=== PATIENT | male | born 1970 | race Caucasian/White ===

== ENCOUNTER 2018-12-14 13:59 | Emergency (ER) | payer OTHER ==
[~2018-12-14] VITALS: Ht 162.6 cm; Wt 82.6 kg
[2018-12-14 14:04] VITALS: BP_SYST 135
[2018-12-14] MEDS ORDERED: KETOROLAC TROMETHAMINE 60 MG/2 ML VIAL IM ONE (14:45)
[2018-12-14 14:54] LABS: BASOPHILS # (AUTO) 0.1 K/uL (0.0-0.2); BASOPHILS % (AUTO) 0.5 % (0.0-2.0); EOSINOPHILS # (AUTO) 0.1 K/uL (0.0-0.4); EOSINOPHILS % (AUTO) 0.6 % (0.0-4.0); HEMATOCRIT 36.9 % (36-54); HEMOGLOBIN 10.8 g/dL (14.0-18.0); LYMPHOCYTES % (AUTO) 15.4 % (20.5-51.5); MEAN CORPUSCULAR HEMOGLOBIN 21 pg (27-31); MEAN CORPUSCULAR HGB CONC 29 % (32-36); MEAN CORPUSCULAR VOLUME 72 fL (79.0-98.0); MONOCYTES # (AUTO) 1.2 K/uL (0.0-1.0); MONOCYTES % (AUTO) 9.1 % (1.7-9.3); NEUTROPHILS # (AUTO) 9.5 K/uL (1.8-7.7); NEUTROPHILS % (AUTO) 74.4 % (40.0-70.0); PLATELET COUNT (AUTO) 337 K/uL (130-430); RED BLOOD CELL COUNT(AUTO) 5.16 MIL/uL (4.2-6.2); RED CELL DISTRIBUTION WIDTH 17.8 % (9.0-15.0); WHITE BLOOD COUNT (AUTO) 12.7 K/uL (4.8-10.8)
[2018-12-14 15:52] LABS: CREATININE 0.89 mg/dL (0.55-1.30); POTASSIUM 4.1 mmol/L (3.5-5.1)
[2018-12-14 15:56] LABS: ALBUMIN 3.7 g/dL (3.4-4.8); TOTAL BILIRUBIN 0.5 mg/dL (0.0-1.0)
[2018-12-14 16:25] VITALS: BP_SYST 135
== END 2018-12-14 16:25 | disposition home or self-care (01) ==
LOC: SED 13:59
DX: R10.9 Unspecified abdominal pain (principal); R10.30 Lower abdominal pain, unspecified
CPT/HCPCS: 36415; 74176; 80053; 83690; 85025; 96372; 99284; J1885

== ENCOUNTER 2019-01-15 10:26 | Inpatient (IN) | payer MEDICAID ==
[~2019-01-15] VITALS: Ht 162.6 cm; Wt 81.6 kg
[~2019-01-15 10:26] MED LIST: PRO40 PO
[2019-01-15 10:28] VITALS: BP_SYST 131
[2019-01-15] MEDS ORDERED: NACL 0.9% 1,000 ML IV ONE (11:15)
[2019-01-15] MEDS ORDERED: KETOROLAC TROMETHAMINE 30 MG VIAL IM ONE (11:15)
[2019-01-15 11:47] LABS: BASOPHILS % (AUTO) 0.2 % (0.0-2.0); EOSINOPHILS % (AUTO) 0.2 % (0.0-4.0); HEMATOCRIT 37.1 % (36-54); HEMOGLOBIN 11.2 g/dL (14.0-18.0); LYMPHOCYTES # (AUTO) 1.4 K/uL (1.0-5.5); LYMPHOCYTES % (AUTO) 12.8 % (20.5-51.5); MEAN CORPUSCULAR HEMOGLOBIN 21 pg (27-31); MEAN CORPUSCULAR HGB CONC 30 % (32-36); MEAN CORPUSCULAR VOLUME 71 fL (79.0-98.0); MONOCYTES # (AUTO) 0.9 K/uL (0.0-1.0); MONOCYTES % (AUTO) 8.1 % (1.7-9.3); NEUTROPHILS # (AUTO) 8.6 K/uL (1.8-7.7); NEUTROPHILS % (AUTO) 78.7 % (40.0-70.0); PLATELET COUNT (AUTO) 308 K/uL (130-430); RED BLOOD CELL COUNT(AUTO) 5.27 MIL/uL (4.2-6.2); RED CELL DISTRIBUTION WIDTH 17.6 % (9.0-15.0); WHITE BLOOD COUNT (AUTO) 10.9 K/uL (4.8-10.8)
[2019-01-15] MEDS ORDERED: DIATR MEGLU/DIATRIZ SOD 30 ML SOLUTION PO ONE (11:51)
[2019-01-15 11:56] LABS: CALCIUM 9.4 mg/dL (8.4-11.0); CREATININE 0.92 mg/dL (0.55-1.30); PROTHROMBIN TIME 9.8 SECS (9.5-12.5)
[2019-01-15 12:01] LABS: ALBUMIN 3.7 g/dL (3.4-4.8); TOTAL BILIRUBIN 0.5 mg/dL (0.0-1.0)
[2019-01-15] MEDS ORDERED: MORPHINE 4 MG/ML INJ. SYRINGE IVP ONE (14:45)
[2019-01-15 16:29] VITALS: BP_SYST 120
[2019-01-15] MEDS ORDERED: KETOROLAC TROMETHAMINE 30 MG VIAL IVP PRN (17:15)
[2019-01-15] MEDS ORDERED: ACETAMINOPHEN 325 MG TABLET PO PRN (18:15)
[2019-01-15] MEDS: POTASSIUM CHLORIDE 10 MEQ in NACL 0.9% 1,000 ML IV SCH (18:30)
[2019-01-15 20:22] VITALS: BP_SYST 134
[2019-01-15] MEDS ORDERED: ONDANSETRON HCL 4 MG/2 ML VIAL IVP PRN (21:00)
[2019-01-15] MEDS ORDERED: KCL 20 mEq in 100 mL (PREMIX) 100 ML IV ONE (21:08)
[2019-01-15] MEDS: PANTOPRAZOLE SODIUM 40 MG/VIAL (PROTONIX) IVP SCH (21:27)
[2019-01-15] MEDS: MORPHINE 2 MG/ML INJ. SYRINGE IVP PRN (21:29)
[2019-01-15] MEDS ORDERED: PANTOPRAZOLE SODIUM 40 MG/VIAL (PROTONIX) IVP ONE (22:00)
[2019-01-15 23:03] VITALS: BP_SYST 137
[2019-01-16 07:29] LABS: BASOPHILS % (AUTO) 0.3 % (0.0-2.0); EOSINOPHILS # (AUTO) 0.1 K/uL (0.0-0.4); EOSINOPHILS % (AUTO) 0.9 % (0.0-4.0); HEMATOCRIT 34.2 % (36-54); HEMOGLOBIN 10.4 g/dL (14.0-18.0); LYMPHOCYTES # (AUTO) 1.8 K/uL (1.0-5.5); LYMPHOCYTES % (AUTO) 26.6 % (20.5-51.5); MEAN CORPUSCULAR HEMOGLOBIN 21 pg (27-31); MEAN CORPUSCULAR HGB CONC 30 % (32-36); MEAN CORPUSCULAR VOLUME 71 fL (79.0-98.0); MONOCYTES # (AUTO) 0.8 K/uL (0.0-1.0); NEUTROPHILS % (AUTO) 60.2 % (40.0-70.0); PLATELET COUNT (AUTO) 279 K/uL (130-430); RED BLOOD CELL COUNT(AUTO) 4.86 MIL/uL (4.2-6.2); WHITE BLOOD COUNT (AUTO) 6.7 K/uL (4.8-10.8)
[2019-01-16 07:32] LABS: CALCIUM 8.6 mg/dL (8.4-11.0); CREATININE 0.97 mg/dL (0.55-1.30)
[2019-01-16 07:41] LABS: TOTAL BILIRUBIN 0.7 mg/dL (0.0-1.0)
[2019-01-16 07:46] LABS: RED CELL DISTRIBUTION WIDTH 17.2 % (9.0-15.0)
[2019-01-16 08:05] VITALS: BP_SYST 132
[2019-01-16] MEDS: PANTOPRAZOLE SODIUM 40 MG/VIAL (PROTONIX) IVP SCH (08:30)
[2019-01-16] MEDS: POTASSIUM CHLORIDE 10 MEQ in NACL 0.9% 1,000 ML IV SCH ×2 (08:30→22:33)
[2019-01-16 12:55] VITALS: BP_SYST 122
[2019-01-16 16:33] VITALS: BP_SYST 119
[2019-01-16 16:47] LABS: BILIRUBIN,URINE NEGATIVE (NEGATIVE); BLOOD, URINE NEGATIVE (NEGATIVE); CLARITY/URINE CLEAR (CLEAR); COLOR,URINE YELLOW (YELLOW); GLUCOSE,URINE NEGATIVE (NEGATIVE); KETONES,URINE NEGATIVE (NEGATIVE); LEUKOCYTE ESTERASE ,URINE NEGATIVE (NEGATIVE); NITRITE, URINE NEGATIVE (NEGATIVE); PH,URINE 6.5 (5.0-8.0); PROTEIN URINE NEGATIVE (NEGATIVE); UROBILINOGEN,URINE 0.2 (0.2-1.0)
[2019-01-16 20:37] VITALS: BP_SYST 122
[2019-01-17] VITALS (7 sets, daily range): BP systolic 114–145
[2019-01-17] MEDS: PANTOPRAZOLE SODIUM 40 MG/VIAL (PROTONIX) IVP SCH (08:41)
[2019-01-17] MEDS ORDERED: BUPIVACAINE LIPOSOME/PF 266 MG/20 ML VIAL INFIL ONE ×2 (13:14→14:50)
[2019-01-17] MEDS ORDERED: BUPIVACAINE /PF 0.25% 30 ML VIAL INJ ONE (14:50)
[2019-01-17] MEDS ORDERED: WATER FOR IRRIGATION,STERILE 1,000 ML IRRIG.SOLN IR ONE (14:50)
[2019-01-17] MEDS ORDERED: ROCURONIUM BROMIDE 10 MG/ML (ZEMURON) ONE (14:50)
[2019-01-17] MEDS ORDERED: fentaNYL CITRATE 250 MCG/5 ML AMP ONE (14:50)
[2019-01-17] MEDS ORDERED: SEVOFLURANE 15 MIN GAS INH ONE (14:50)
[2019-01-17] MEDS ORDERED: MIDAZOLAM HCL 5 MG/ML VIAL (VERSED) IV ONE (14:50)
[2019-01-17] MEDS ORDERED: PROPOFOL 200MG/ 20ML VIAL (DIPRIVAN) IV ONE (14:50)
[2019-01-17] MEDS ORDERED: NS IRRIG SOLN 1000 ML IR ONE (14:50)
[2019-01-17] MEDS ORDERED: LR 1,000 ML IV.SOLN IV ONE (14:50)
[2019-01-17] MEDS ORDERED: ONDANSETRON HCL 4 MG/2 ML VIAL ONE (14:50)
[2019-01-17] MEDS ORDERED: LR 1,000 ML IV SCH (14:58)
[2019-01-17] MEDS ORDERED: HYDROcodone/ACETAMIN 5-325 MG TAB (NORCO/ VICODIN) PO PRN (15:00)
[2019-01-17] MEDS ORDERED: METOCLOPRAMIDE HCL 10 MG/2 ML VIAL IVP PRN (15:00)
[2019-01-17] MEDS ORDERED: MORPHINE 4 MG/ML INJ. SYRINGE IVP PRN ×3 (15:00)
[2019-01-17] MEDS: MORPHINE 2 MG/ML INJ. SYRINGE IVP PRN ×2 (17:59→22:36)
[2019-01-17] MEDS: POTASSIUM CHLORIDE 10 MEQ in NACL 0.9% 1,000 ML IV SCH (18:01)
[2019-01-17] MEDS: ceFAZolin SODIUM 2 GM in D5W 100 ML IV SCH (22:41)
[2019-01-18 00:26] VITALS: BP_SYST 122
[2019-01-18] MEDS: POTASSIUM CHLORIDE 10 MEQ in NACL 0.9% 1,000 ML IV SCH ×2 (05:15→18:51)
[2019-01-18] MEDS: ceFAZolin SODIUM 2 GM in D5W 100 ML IV SCH ×2 (05:16→13:30)
[2019-01-18 08:00] VITALS: BP_SYST 123
[2019-01-18] MEDS: PANTOPRAZOLE SODIUM 40 MG/VIAL (PROTONIX) IVP SCH (09:35)
[2019-01-18 12:51] VITALS: BP_SYST 118
[2019-01-18 16:49] VITALS: BP_SYST 145
[2019-01-18 20:20] VITALS: BP_SYST 135
[2019-01-19 00:42] VITALS: BP_SYST 119
[2019-01-19 07:30] VITALS: BP_SYST 130
[2019-01-19] MEDS: POTASSIUM CHLORIDE 10 MEQ in NACL 0.9% 1,000 ML IV SCH (08:35)
[2019-01-19] MEDS: PANTOPRAZOLE SODIUM 40 MG/VIAL (PROTONIX) IVP SCH (08:35)
[2019-01-19 12:33] VITALS: BP_SYST 120
[2019-01-19 16:50] VITALS: BP_SYST 126
[2019-01-19 18:54] VITALS: BP_SYST 126
== END 2019-01-19 19:55 | disposition home or self-care (01) | DRG 230 ==
LOC: SED 10:26 → SMU 15:21
PROVIDERS: ADMIT Internal Medicine; ATTEND Internal Medicine
PROC: 0WQF4ZZ Repair Abdominal Wall, Percutaneous Endoscopic Approach (ICD-10-PCS; 2019-01-17)
PROC: 0DB84ZZ Excision of Small Intestine, Percutaneous Endoscopic Approach (ICD-10-PCS; principal; 2019-01-17 09:00)
DX: K56.690 Other partial intestinal obstruction (principal); T18.3XXA Foreign body in small intestine, initial encounter; K42.9 Umbilical hernia without obstruction or gangrene; X58.XXXA Exposure to other specified factors, initial encounter; Y93.89 Activity, other specified; Y92.89 Other specified places as the place of occurrence of the external cause; Y99.8 Other external cause status
CPT/HCPCS: 36415; 71046-TC; 80053; 81003; 82150-TC; 83690-TC; 85025; 85610-TC; 85730-TC; 86886; 86900; 86901; 87081; 87230-TC; 88302; 88307; 93005; 96372; 96374; 99285; C1727; C9113; C9290; J0690; J1885; J2250; J2270; J2405; J2704; J3010; J3480; J3490; J7030; J7060; J7120; Q9964

== ENCOUNTER 2020-06-26 12:50 | Emergency (ER) | payer MEDICAID, OTHER ==
[~2020-06-26] VITALS: Ht 165.1 cm; Wt 79.4 kg
[2020-06-26 12:59] VITALS: BP_SYST 142
--- NOTE | 2020-06-26 13:25 | NUR ---
Patient to ER bed 01 to gown for evaluation. Side rails up.
--- NOTE | 2020-06-26 13:27 | NUR ---
Patient arrived in the ED c/o redness and swelling on the left eyelid. Denied any chest pain or shortness of breath. Denied any fevers, chills, nausea or vomiting. Patient is alert and oriented x4, respirations even and unlabored, speaking in full sentences, and ambulating with a steady gait. VSS, pain level 0/10. Informed of the approximate wait time. Instructed to notify ED staff for any changes in condition or worsening of symptoms while waiting to be seen by an ED provider. Patient verbalized understanding.
--- NOTE | 2020-06-26 13:28 | NUR ---
ER Dr. Calin Ldad at bedside examining patient.
--- NOTE | 2020-06-26 13:35 | NUR ---
Patient given written and verbal discharge instructions and verbalizes understanding. ER MD discussed with patient the results and treatment provided. Patient in stable condition. ID arm band removed. Rx of Sulfacetamide and Clindamycin given. Patient educated on pain management and to follow up with PMD. Pain Scale 0/10. Opportunity for questions provided and answered. Medication side effect fact sheet provided.
[2020-06-26 13:36] VITALS: BP_SYST 142
== END 2020-06-26 13:35 | disposition home or self-care (01) ==
LOC: SED 12:50
DX: H00.014 Hordeolum externum left upper eyelid (principal)
CPT/HCPCS: 99283

== ENCOUNTER 2020-11-20 15:44 | Emergency (ER) | payer MEDICAID, SELFPAY ==
[~2020-11-20] VITALS: Ht 162.6 cm; Wt 69.4 kg
[2020-11-20 15:45] VITALS: BP_SYST 127
[2020-11-20 17:02] LABS: BASOPHILS % (AUTO) 0.2 % (0.0-2.0); HEMATOCRIT 46.4 % (36-54); HEMOGLOBIN 15.7 g/dL (14.0-18.0); LYMPHOCYTES # (AUTO) 1.3 K/uL (1.0-5.5); LYMPHOCYTES % (AUTO) 17.7 % (20.5-51.5); MEAN CORPUSCULAR HEMOGLOBIN 30 pg (27-31); MEAN CORPUSCULAR HGB CONC 34 % (32-36); MEAN CORPUSCULAR VOLUME 90 fL (79.0-98.0); MONOCYTES # (AUTO) 0.7 K/uL (0.0-1.0); MONOCYTES % (AUTO) 9.1 % (1.7-9.3); NEUTROPHILS # (AUTO) 5.4 K/uL (1.8-7.7); PLATELET COUNT (AUTO) 197 K/uL (130-430); RED BLOOD CELL COUNT(AUTO) 5.16 MIL/uL (4.2-6.2); RED CELL DISTRIBUTION WIDTH 13.5 % (9.0-15.0); WHITE BLOOD COUNT (AUTO) 7.5 K/uL (4.8-10.8)
[2020-11-20 17:26] LABS: ALBUMIN 3.7 g/dL (3.4-4.8); CALCIUM 8.8 mg/dL (8.4-11.0); CREATININE 1.29 mg/dL (0.55-1.30); POTASSIUM 4.6 mmol/L (3.5-5.1); TOTAL BILIRUBIN 0.5 mg/dL (0.0-1.0)
[2020-11-20 17:34] LABS: C-REACTIVE PROTEIN QUANT 21.1 mg/dL (0-0.5)
[2020-11-20] MEDS ORDERED: PRED20TA PO (18:39)
[2020-11-20] MEDS ORDERED: ZIT250 PO (18:39)
[2020-11-20 18:47] VITALS: BP_SYST 124
== END 2020-11-20 18:47 | disposition home or self-care (01) ==
LOC: SED 15:44
DX: U07.1 COVID-19 (principal); J40 Bronchitis, not specified as acute or chronic
CPT/HCPCS: 36415; 71045; 80053; 83605; 85025; 86140; 99284